=== PATIENT | female | born 1950 | race Caucasian/White ===

== ENCOUNTER 2024-10-10 14:06 | Emergency (ER) | payer MEDICARE, BC ==
[2024-10-10] VITALS (7 sets, daily range): BP systolic 144–173; BP diastolic 75–83
[~2024-10-10] VITALS: Ht 170.2 cm; Wt 81.0 kg
[~2024-10-10 14:06] MED LIST: ASA LOW DOSE81 MG OR; ATENOLOL100 M1 PO; BACLOFEN10 MG PO; BAYER ASA325 MG PO; BREZTRI AEROSPH1 AER IN; CALC ANTACID PO; CETIRIZINE10 MG PO; CHLORTHALIDONE25 MG PO; DIOVAN320 MG PO; DITROPAN PO; GABAPENTIN300 M2; HYDROCHLOROT12.5 M1 OR; LEVAQUIN750 M1 PO; LOPRESSOR25 MG PO; NEXIUM40 M1 PO; PREDNISONE20 MG PO; TENORMIN25 MG OR; VENTOLIN HFA108 MCG; ZYLOPRIM300 MG PO
[2024-10-10] MEDS ORDERED: POTASSIUM NITRATE TOP ONE (14:25)
[2024-10-10] MEDS ORDERED: LIDOCAINE W/ EPINEPHRINE 10 MG/ML INJ IJ ONE (14:25)
[2024-10-10] MEDS ORDERED: SILVER NITRATE TOP ONE (14:25)
[2024-10-10] MEDS ORDERED: methylPREDNISolone SODIUM SUCC 125 MG/2 ML SDV IM ONE (14:30)
[2024-10-10] MEDS ORDERED: BENZONATATE 200 MG/CAP PO ONE (14:30)
[2024-10-10] MEDS ORDERED: IPRATROPIUM-Albuterol 0.5MG-2.5MG/3 ML NEB ONE (14:30)
[2024-10-10] MEDS ORDERED: PREDNISONE50 MG PO (14:33)
[2024-10-10] MEDS ORDERED: ZITHROMAX250 MG PO (14:33)
[2024-10-10] MEDS ORDERED: BENZONATATE200 MG PO (14:33)
[2024-10-10] MEDS ORDERED: NASAL SPRAY EX0.05 % NAB (14:33)
== END 2024-10-10 15:39 | disposition home or self-care (01) ==
LOC: ED 14:06
PROC: 093K7ZZ Control Bleeding in Nasal Mucosa and Soft Tissue, Via Natural or Artificial Opening (ICD-10-PCS; principal; 2024-10-10)
DX: R04.0 Epistaxis (principal); J40 Bronchitis, not specified as acute or chronic; I10 Essential (primary) hypertension; J44.9 Chronic obstructive pulmonary disease, unspecified; I48.91 Unspecified atrial fibrillation; Z95.0 Presence of cardiac pacemaker; Z86.73 Personal history of transient ischemic attack (TIA), and cerebral infarction without residual deficits; Z20.822 Contact with and (suspected) exposure to COVID-19

== ENCOUNTER 2024-10-18 07:39 | Emergency (ER) | payer MEDICARE, BC ==
[~2024-10-18] VITALS: Ht 170.2 cm; Wt 93.0 kg
[2024-10-18] VITALS (12 sets, daily range): BP systolic 133–172; BP diastolic 80–107
[~2024-10-18 07:39] MED LIST changes: +BENZONATATE200 MG PO; +NASAL SPRAY EX0.05 % NAB; +PREDNISONE50 MG PO; +ZITHROMAX250 MG PO
[2024-10-18] MEDS ORDERED: ACETAMINOPHEN 500 MG TAB PO ONE (08:05)
[2024-10-18] MEDS ORDERED: traMADol HCL 50 MG/TAB PO ONE (08:10)
== END 2024-10-18 11:29 | disposition home or self-care (01) ==
LOC: ED 07:39
DX: S00.03XA Contusion of scalp, initial encounter (principal); S00.12XA Contusion of left eyelid and periocular area, initial encounter; I10 Essential (primary) hypertension; J44.9 Chronic obstructive pulmonary disease, unspecified; I48.91 Unspecified atrial fibrillation; W06.XXXA Fall from bed, initial encounter; Y92.003 Bedroom of unspecified non-institutional (private) residence as the place of occurrence of the external cause; Z95.0 Presence of cardiac pacemaker; Z86.73 Personal history of transient ischemic attack (TIA), and cerebral infarction without residual deficits